=== PATIENT | male | born 1945 | race Caucasian/White ===

== ENCOUNTER 2024-04-01 03:02 | Inpatient (IN) | payer MEDICARE, BC ==
[~2024-04-01] VITALS: Ht 193 cm; Wt 99.8 kg
[2024-04-01] MEDS ORDERED: ONDANSETRON HCL/PF 4 MG/2 ML VIAL ONE ×2 (03:16→10:14)
[2024-04-01] MEDS: ONDANSETRON HCL/PF 4 MG/2 ML VIAL IVP ONE (03:17)
[2024-04-01] MEDS: IV NS 0.9% 1,000 ML BAG IV ONE ×2 (03:17→05:05)
[2024-04-01] MEDS ORDERED: MORPHINE SULFATE INJ 2 MG/ML DISP.SYRIN ONE ×4 (03:22→11:41)
[2024-04-01] MEDS: MORPHINE SULFATE INJ 2 MG/ML DISP.SYRIN IV ONE ×3 (03:23→07:15)
[2024-04-01 03:27] LABS: BASOPHILS % (AUTO) 0.2 % (0.0-2.0); EOSINOPHILS # (AUTO) 0.1 K/uL (0.0-0.7); EOSINOPHILS % (AUTO) 0.6 % (0.0-6.0); HEMATOCRIT 44 % (39-51); HEMOGLOBIN 14.5 g/dL (13.5-17.5); LYMPHOCYTES # (AUTO) 1.1 K/uL (0.8-4.8); LYMPHOCYTES % (AUTO) 9.7 % (20.0-44.0); MEAN CORPUSCULAR HEMOGLOBIN 29 PG (26.0-33.0); MEAN CORPUSCULAR HGB CONC 33 g/dl (31.0-36.0); MEAN CORPUSCULAR VOLUME 88 fL (80-96); MONOCYTES # (AUTO) 1.3 K/uL (0.1-1.30); MONOCYTES % (AUTO) 11.1 % (2.0-12.0); NEUTROPHILS # (AUTO) 8.9 K/uL (1.8-8.9); NEUTROPHILS % (AUTO) 78.4 % (43.0-81.0); PLATELET COUNT (AUTO) 256 K/uL (150-450); RED BLOOD CELL COUNT(AUTO) 5.01 MIL/uL (4.5-6.0); RED CELL DISTRIBUTION WIDTH 14.8 % (11.5-15.0); WHITE BLOOD COUNT (AUTO) 11.4 K/uL (4.3-11.0)
[2024-04-01 03:32] LABS: CALCIUM, SERUM 8.8 mg/dL (8.5-10.1); CARBON DIOXIDE 24 mmol/L (21-32); CHLORIDE 96 mmol/L (98-107); CREATININE 2.3 mg/dL (0.6-1.3); GLUCOSE 248 mg/dL (74-106); SODIUM SERUM 129 mmol/L (136-145); UREA NITROGEN, BLOOD 38 mg/dL (7-18)
[2024-04-01 03:36] LABS: ALANINE AMINOTRANSFERASE 26 U/L (12-78); ALKALINE PHOSPHATASE 109 U/L (46-116); ASPARTATE AMINOTRANSFERASE 18 U/L (15-37); BILIRUBIN,DIRECT 0.2 mg/dL (0.0-0.2); BILIRUBIN,TOTAL 0.7 mg/dL (0.2-1.0); LIPASE 20 U/L (16-77); TOTAL PROTEIN, SERUM 7.7 g/dL (6.4-8.2)
[2024-04-01 03:40] LABS: ACETONE, SERUM NEGATIVE (NEGATIVE)
[2024-04-01 03:52] LABS: PHOSPHORUS 3.5 mg/dL (2.5-4.9)
[2024-04-01] MEDS ORDERED: hydrALAZINE HCL IV 20 MG VIAL IV PRN (05:30)
[2024-04-01] MEDS: IV NS 0.9% 1,000 ML IV SCH (05:30)
[2024-04-01] MEDS ORDERED: INSU100I26 SQ (08:41)
[2024-04-01] MEDS ORDERED: GABA-532 PO (08:41)
[2024-04-01] MEDS ORDERED: CARV12.52 PO (08:41)
[2024-04-01] MEDS ORDERED: ROSU5TAB13 PO (08:41)
[2024-04-01] MEDS ORDERED: LEVO175T7 PO (08:41)
[2024-04-01] MEDS ORDERED: hydrALAZINE HCL IV 20 MG VIAL ONE (08:45)
[2024-04-01] MEDS ORDERED: ACETAMINOPHEN 325 MG TABLET ONE ×2 (08:46→15:13)
[2024-04-01] MEDS ORDERED: HEPARIN SODIUM, PORCINE 5000 UNITS/1 ML VIAL ONE (08:46)
[2024-04-01] MEDS: CEFTRIAXONE 1GM BAG (ER ONLY) 50 ML IV ONE (09:00)
[2024-04-01] MEDS: HEPARIN SODIUM, PORCINE 5000 UNITS/1 ML VIAL SQ SCH (09:02)
[2024-04-01] MEDS: ACETAMINOPHEN 325 MG TABLET PO PRN (09:06)
[2024-04-01] MEDS: SIMETHICONE 80 MG TAB.CHEW PO ONE (09:30)
[2024-04-01] MEDS ORDERED: CEFTRIAXONE 1 G VIAL ONE (10:13)
[2024-04-01] MEDS ORDERED: SIMETHICONE 80 MG TAB.CHEW ONE (10:14)
[2024-04-01] MEDS: AZITHROMYCIN 500 MG in IV D5W 250 ML IV ONE (10:30)
[2024-04-01] MEDS: ONDANSETRON HCL/PF 4 MG/2 ML VIAL IVP PRN (10:30)
[2024-04-01] MEDS: MORPHINE SULFATE INJ 2 MG/ML DISP.SYRIN IV PRN (11:56)
[2024-04-01] MEDS: CEFTRIAXONE 1 G in IV D5W 50 ML IV SCH (14:30)
[2024-04-01] MEDS: LORAZEPAM 0.5 MG TABLET PO ONE (15:30)
[2024-04-01 20:00] VITALS: BP 115/62; TEMP 98.2; O2SAT 95
[2024-04-02] VITALS: BP 112/65; TEMP 98.4; TEMP 98.6; O2SAT 92
[2024-04-02 04:00] VITALS: BP 128/73; TEMP 98.2; O2SAT 95
[2024-04-02 06:37] LABS: BASOPHILS % (AUTO) 0.3 % (0.0-2.0); EOSINOPHILS % (AUTO) 0.5 % (0.0-6.0); HEMATOCRIT 38 % (39-51); HEMOGLOBIN 12.8 g/dL (13.5-17.5); LYMPHOCYTES # (AUTO) 0.7 K/uL (0.8-4.8); LYMPHOCYTES % (AUTO) 9.3 % (20.0-44.0); MEAN CORPUSCULAR HEMOGLOBIN 30 PG (26.0-33.0); MEAN CORPUSCULAR HGB CONC 34 g/dl (31.0-36.0); MEAN CORPUSCULAR VOLUME 87 fL (80-96); MONOCYTES # (AUTO) 1.2 K/uL (0.1-1.30); MONOCYTES % (AUTO) 15.2 % (2.0-12.0); NEUTROPHILS % (AUTO) 74.7 % (43.0-81.0); PLATELET COUNT (AUTO) 240 K/uL (150-450); RED BLOOD CELL COUNT(AUTO) 4.35 MIL/uL (4.5-6.0); RED CELL DISTRIBUTION WIDTH 14.7 % (11.5-15.0); WHITE BLOOD COUNT (AUTO) 8.1 K/uL (4.3-11.0)
[2024-04-02 06:44] LABS: ALBUMIN 2.2 g/dL (3.4-5.0); BILIRUBIN,TOTAL 0.4 mg/dL (0.2-1.0); CALCIUM, SERUM 8.4 mg/dL (8.5-10.1); CREATININE 1.9 mg/dL (0.6-1.3); MAGNESIUM 1.7 mg/dL (1.8-2.4); PHOSPHORUS 3.2 mg/dL (2.5-4.9); POTASSIUM 4.2 mmol/L (3.5-5.1); TOTAL PROTEIN, SERUM 6.3 g/dL (6.4-8.2)
[2024-04-02] MEDS: AZITHROMYCIN 500 MG in IV D5W 250 ML IV SCH (08:49)
[2024-04-02] MEDS ORDERED: GABAPENTIN 100 MG CAPSULE PO PRN (09:00)
[2024-04-02] MEDS: LEVOTHYROXINE SODIUM 175 MCG TABLET PO SCH (09:29)
[2024-04-02] MEDS: CARVEDILOL 12.5 MG TABLET PO SCH (09:29)
[2024-04-02] MEDS: Magnesium 1GM/D5W 100ML PREMIX 100 ML IV SCH (09:51)
[2024-04-02] MEDS: MINERAL OIL/PETROL OINT 396 GM JAR TP SCH (10:49)
[2024-04-02] MEDS: CEFTRIAXONE 2 G in IV D5W 100 ML IV SCH (13:28)
[2024-04-02 13:31] LABS: CHOLESTEROL 101 mg/dL (<200); HDL CHOLESTEROL 54 mg/dL (40-60); LDL 41 mg/dL (0-99); TRIGLYCERIDES 97 mg/dL (30-150)
[2024-04-02 16:00] VITALS: BP 119/68; TEMP 98.2; O2SAT 95
[2024-04-02] MEDS ORDERED: ZOLPIDEM TARTRATE 5 MG TABLET PO PRN (16:00)
[2024-04-02 20:00] VITALS: BP 105/66; TEMP 98.6; O2SAT 93
[2024-04-02] MEDS: ATORVASTATIN 10 MG TABLET PO SCH (21:51)
[2024-04-02] MEDS: GUAIFENESIN/D-METHORPHAN HB 5 ML UDC PO PRN (23:50)
[2024-04-03 01:41] VITALS: BP 105/66; TEMP 98.6; O2SAT 93
[2024-04-03 07:30] VITALS: BP 131/77; TEMP 98.1; O2SAT 95
[2024-04-03 07:56] LABS: BASOPHILS % (AUTO) 0.6 % (0.0-2.0); EOSINOPHILS # (AUTO) 0.1 K/uL (0.0-0.7); EOSINOPHILS % (AUTO) 1.1 % (0.0-6.0); HEMATOCRIT 38 % (39-51); LYMPHOCYTES # (AUTO) 0.8 K/uL (0.8-4.8); LYMPHOCYTES % (AUTO) 11.7 % (20.0-44.0); MEAN CORPUSCULAR HEMOGLOBIN 30 PG (26.0-33.0); MEAN CORPUSCULAR HGB CONC 34 g/dl (31.0-36.0); MEAN CORPUSCULAR VOLUME 87 fL (80-96); MONOCYTES # (AUTO) 0.9 K/uL (0.1-1.30); MONOCYTES % (AUTO) 12.9 % (2.0-12.0); NEUTROPHILS # (AUTO) 5.3 K/uL (1.8-8.9); NEUTROPHILS % (AUTO) 73.7 % (43.0-81.0); PLATELET COUNT (AUTO) 290 K/uL (150-450); RED BLOOD CELL COUNT(AUTO) 4.43 MIL/uL (4.5-6.0); RED CELL DISTRIBUTION WIDTH 14.6 % (11.5-15.0); WHITE BLOOD COUNT (AUTO) 7.2 K/uL (4.3-11.0)
[2024-04-03 08:09] LABS: ALBUMIN 2.1 g/dL (3.4-5.0); BILIRUBIN,TOTAL 0.3 mg/dL (0.2-1.0); CALCIUM, SERUM 8.4 mg/dL (8.5-10.1); CREATININE 2.1 mg/dL (0.6-1.3); MAGNESIUM 2.3 mg/dL (1.8-2.4); PHOSPHORUS 3.3 mg/dL (2.5-4.9); POTASSIUM 4.3 mmol/L (3.5-5.1); TOTAL PROTEIN, SERUM 6.5 g/dL (6.4-8.2)
[2024-04-03 09:30] VITALS: BP 133/77
[2024-04-03] MEDS: INSULIN GLARGINE, 100 UNIT/ML CARTRIDGE SQ SCH (09:36)
[2024-04-03] MEDS ORDERED: LORAZEPAM 0.5 MG TABLET PO PRN (10:00)
[2024-04-03] MEDS ORDERED: IV NS 0.9% 1,000 ML IV PRN (10:41)
[2024-04-03] MEDS ORDERED: AZIT500T4 PO (11:49)
[2024-04-04 06:07] LABS: PTH, INTACT 28 pg/mL (15-65)
[2024-04-04 10:07] LABS: *SPE A/G RATIO 0.8 (0.7-1.7); *SPE ALBUMIN 2.5 g/dL (2.9-4.4); *SPE ALPHA-1-GLOBULIN 0.5 g/dL (0.0-0.4); *SPE ALPHA-2-GLOBULIN 1.2 g/dL (0.4-1.0); *SPE BETA GLOBULIN 0.8 g/dL (0.7-1.3); *SPE GLOBULIN, TOTAL 3.3 g/dL (2.2-3.9); *SPE M-SPIKE Not Observed g/dL (Not Observed); *SPE PROTEIN TOTAL 5.8 g/dL (6.0-8.5); *SPEGAMMA GLOBULIN 0.8 g/dL (0.4-1.8)
== END 2024-04-03 14:47 | disposition home or self-care (01) | DRG 193 ==
LOC: ER 03:10 → TELE 15:29
PROVIDERS: ATTEND Internal Medicine
DX: J15.9 Unspecified bacterial pneumonia (principal); I21.A1 Myocardial infarction type 2; J96.91 Respiratory failure, unspecified with hypoxia; E87.1 Hypo-osmolality and hyponatremia; N18.4 Chronic kidney disease, stage 4 (severe); D64.9 Anemia, unspecified; E03.9 Hypothyroidism, unspecified; E83.42 Hypomagnesemia; E86.9 Volume depletion, unspecified; F41.9 Anxiety disorder, unspecified; J40 Bronchitis, not specified as acute or chronic; Z85.528 Personal history of other malignant neoplasm of kidney; Z90.5 Acquired absence of kidney; I12.9 Hypertensive chronic kidney disease with stage 1 through stage 4 chronic kidney disease, or unspecified chronic kidney disease; M89.8X9 Other specified disorders of bone, unspecified site; E83.9 Disorder of mineral metabolism, unspecified; R91.1 Solitary pulmonary nodule; E11.22 Type 2 diabetes mellitus with diabetic chronic kidney disease
CPT/HCPCS: 36415; 71045-TC; 71250-TC; 76770-TC; 80048-TC; 80053-TC; 80061-TC; 80076-TC; 82010-TC; 82550-TC; 82962-TC; 83690-TC; 83735-TC; 83970; 84100-TC; 84155; 84165; 84484-TC; 85025-TC; 87040-TC; 93307-TC; 97116-TC; 97530-TC; A4223; G0378; J0360; J0456; J0696; J1644; J1815; J2270; J2405; J3475; J7030; J7050; J7060